=== PATIENT | female | born 1975 | race Caucasian/White ===

== ENCOUNTER 2017-08-11 22:01 | Emergency (ER) | payer MEDICAID ==
--- NOTE | 2017-08-11 22:17 | ER Document Report ---
ED Medical Screen (RME) - General Chief Complaint: Suicidal Ideation Stated Complaint: SUICIDIAL IDEATION Time Seen by Provider: 08/11/17 22:14 Mode of Arrival: Wheelchair Information source: Patient Notes: Having suicidal thoughts. States she plans to take more pills if she gets sent home. States she is addicted to alcohol and crack. She states in the past she is taking opiates crack and heroin. States her last time taken crackles Friday. States she has taken 30 Prozac multiple amlodipine and hydrochlorothiazide over the last 3 days but she does not know how many. She states she just took what was left in the bottle and then felt a new bottle. She is here with her sister. Sister has her bag of pills and patient is very tearful. I have greeted and performed a rapid initial assessment of this patient. A comprehensive ED assessment and evaluation of the patient, analysis of test results and completion of medical decision making process will be conducted by an additional ED providers. TRAVEL OUTSIDE OF THE [place] IN LAST 30 DAYS: No Physical Exam - Vital signs Vitals: Temp Pulse Resp BP Pulse Ox 98.3 F 138 H 22 H 133/87 H 98 08/11/17 22:05 08/11/17 22:05 08/11/17 22:05 08/11/17 22:05 08/11/17 22:05 Course - Vital Signs Vital signs: Temp Pulse Resp BP Pulse Ox 98.3 F 138 H 22 H 133/87 H 98 08/11/17 22:05 08/11/17 22:05 08/11/17 22:05 08/11/17 22:05 08/11/17 22:05
[2017-08-11 23:05] LABS: ABSOLUTE EOSINOPHILS # (AUTO) 0.1 10^3/uL (0.0-0.6); ABSOLUTE LYMPHOCYTES (AUTO) 3.4 10^3/uL (0.5-4.7); ABSOLUTE MONOCYTES (AUTO) 0.7 10^3/uL (0.1-1.4); ABSOLUTE NEUT (AUTO) 3.4 10^3/uL (1.7-8.2); BASOPHILS % (AUTO) 0.6 % (0-2); EOSINOPHILS % (AUTO) 1.3 % (0-6); HEMATOCRIT 39.1 % (36.0-47.0); HEMOGLOBIN 13.9 g/dL (12.0-15.5); LYMPHOCYTES % (AUTO) 44.8 % (13-45); MEAN CORPUSCULAR HEMOGLOBIN 33.2 pg (27.0-33.4); MEAN CORPUSCULAR HGB CONC 35.4 g/dL (32.0-36.0); MEAN CORPUSCULAR VOLUME 94 fl (80-97); MONOCYTES % (AUTO) 8.8 % (3-13); PLATELET COUNT 377 10^3/uL (150-450); RED BLOOD COUNT 4.18 10^6/uL (3.72-5.28); RED CELL DISTRIBUTION WIDTH 12.9 % (11.5-14.0); SEGMENTED NEUTROPHILS % (AUTO) 44.5 % (42-78); TOTAL CELLS COUNTED % (AUTO) 100 %; WHITE BLOOD COUNT 7.7 10^3/uL (4.0-10.5)
[2017-08-11 23:17] LABS: ACETAMINOPHEN < 10 ug/mL (10-30); ALANINE AMINOTRANSFERASE 36 U/L (9-52); ALBUMIN 4.5 g/dL (3.5-5.0); ALCOHOL 177 mg/dL (NONE DETECTED); ALKALINE PHOSPHATASE 73 U/L (38-126); ANION GAP 14 (5-19); ASPARTATE AMINO TRANSFERASE 31 U/L (14-36); BILIRUBIN,DIRECT 0.1 mg/dL (0.0-0.4); BILIRUBIN,TOTAL 0.2 mg/dL (0.2-1.3); BLOOD UREA NITROGEN 6 mg/dL (7-20); CALCIUM 9.4 mg/dL (8.4-10.2); CARBON DIOXIDE 29 mmol/L (22-30); CHLORIDE 97 mmol/L (98-107); GLUCOSE 101 mg/dL (75-110); SALICYLATE < 1.0 mg/dL (2.0-20.0); SODIUM 139.8 mmol/L (137-145); TOTAL PROTEIN 6.7 g/dL (6.3-8.2)
[2017-08-11 23:19] LABS: POTASSIUM 2.6 mmol/L (3.6-5.0)
[2017-08-12] MEDS ORDERED: MAGNESIUM OXIDE 400 MG TABLET PO ONE (00:23)
[2017-08-12] MEDS ORDERED: POTASSIUM CHLORIDE 10 MEQ TABLET.SA PO ONE ×3 (00:23→12:17)
[2017-08-12 02:56] LABS: APPEARANCE,URINE SLIGHTLY-CLOUDY; BILIRUBIN,URINE NEGATIVE (NEGATIVE); COLOR,URINE YELLOW; GLUCOSE, URINE NEGATIVE (NEGATIVE); KETONES,URINE NEGATIVE (NEGATIVE); LEUKOCYTE ESTERASE,URINE TRACE (NEGATIVE); NITRITE,URINE NEGATIVE (NEGATIVE); PROTEIN,URINE NEGATIVE (NEGATIVE); URINE SPECIFIC GRAVITY 1.004; UROBILINOGEN,URINE NEGATIVE mg/dL (<2.0)
[2017-08-12 03:10] LABS: URINE AMPHETAMINES SCREEN NEGATIVE; URINE BARBITURATES SCREEN NEGATIVE; URINE BENZODIAZEPINES SCREEN NEGATIVE; URINE COCAINE SCREEN NEGATIVE; URINE MARIJUANA (THC) SCREEN NEGATIVE; URINE METHADONE SCREEN NEGATIVE; URINE PHENCYCLIDINE SCREEN NEGATIVE
--- NOTE | 2017-08-12 03:43 | ER Document Report ---
ED General - General Chief Complaint: Suicidal Ideation Stated Complaint: SUICIDIAL IDEATION Time Seen by Provider: 08/11/17 22:14 Mode of Arrival: Wheelchair Cannot obtain history due to: Intoxicated, Altered mental status Notes: Patient is a 41-year-old female presents with her sister with suicidal ideation and polysubstance abuse. History is limited to me as the patient is intoxicated , difficult to awake. Review of the triage assessment does report that the patient has been using multiple drugs and is stating that if she is discharged home she will kill herself. Patient wakes up to talk to me she is obviously intoxicated, unable to provide any additional meaningful history. Family is no longer at the bedside at the time of my assessment. TRAVEL OUTSIDE OF THE [place] IN LAST 30 DAYS: No Past Medical History - General Information source: Patient - Social History Smoking Status: Current Every Day Smoker Frequency of alcohol use: Heavy Drug Abuse: Cocaine, Methamphetamine Lives with: Family Family History: Reviewed & Not Pertinent Patient has suicidal ideation: Yes Patient has homicidal ideation: No Renal/ Medical History: Denies: Hx Peritoneal Dialysis Psychiatric Medical History: Reports: Hx Depression Review of Systems - Review of Systems -: Yes ROS unobtainable due to patient's medical condition Physical Exam - Vital signs Vitals: Temp Pulse Resp BP Pulse Ox 98.3 F 138 H 22 H 133/87 H 98 08/11/17 22:05 08/11/17 22:05 08/11/17 22:05 08/11/17 22:05 08/11/17 22:05 Interpretation: Tachycardic Notes: PHYSICAL EXAMINATION: GENERAL: Sleeping soundly, in no distress. HEAD: Atraumatic, normocephalic. EYES: Pupils equal round and reactive to light, sclera anicteric, conjunctiva are normal. ENT: nares patent, oropharynx clear without exudates. Moderately dry mucous membranes. NECK: Normal range of motion, supple without lymphadenopathy LUNGS: Breath sounds clear to auscultation bilaterally and equal. No wheezes rales or rhonchi. HEART: Regular rate and rhythm without murmurs ABDOMEN: Soft, nontender, normoactive bowel sounds. No guarding, no rebound. No masses appreciated. EXTREMITIES: no pitting or edema. No cyanosis. NEUROLOGICAL: No focal neurological deficits. Moves all extremities spontaneously. PSYCH: Intoxicated, somnolent SKIN: Warm, Dry, normal turgor, no rashes or lesions noted. Course - Re-evaluation Re-evalutation: 08/12/17 03:41 Patient presents apparently with suicidal ideation although was very calm, difficult to wake up when I was speaking to her. She did wake up was able to move all extremities, was slurring her words, clinically consistent with acute intoxication. Review of the provider's note from triage states that at that time the patient was quite agitated, threatening suicide, and admitting to extensive drug use. Patient's medical screening laboratories and exam are all are unremarkable with exception of moderate hypokalemia 2.6. Potassium magnesium repletion have been provided. Patient is medically cleared for evaluation and disposition by psychiatry in the morning - Vital Signs Vital signs: Temp Pulse Resp BP Pulse Ox 98.3 F 138 H 22 H 133/87 H 98 08/11/17 22:05 08/11/17 22:05 08/11/17 22:05 08/11/17 22:05 08/11/17 22:05 - Laboratory Result Diagrams: 08/11/17 22:45 08/11/17 22:45 Laboratory results interpreted by me: 08/11/17 08/12/17 22:45 02:30 Potassium 2.6 L* Chloride 97 L BUN 6 L Urine Blood LARGE H Ur Leukocyte Esterase TRACE H Salicylates < 1.0 L Acetaminophen < 10 L Discharge - Discharge Clinical Impression: Polysubstance abuse, Suicidal ideation Condition: Fair
--- NOTE | 2017-08-12 10:18 | PSYCHOLOGICAL NOTE ---
Psych Note - Psych Note Psych Note: Reason for consult: Suicidal ideation Eval : 0830 Final Dispo: 0930 Contact Permissions Kristin Velasco [phone] Patient is a 41-year-old female. Patient reports that she came to the emergency room because her friend Kristin was talking on the phone with her and made an agreement to come pick her up and taken to the emergency room because she was not feeling well. Patient reports that she has been drinking alcohol excessively daily, stating 12 pack or more per day. Patient reports that she told her friend/sister that she wanted to get detox. Patient reports that she was in detox 3 or 4 years ago in [place] for a heroin addiction. Patient reports prior to discharging from the rehab facility she was addicted to heroin , opioids, and crack. Patient reports that after rehab she received therapy in [place] and was receiving Suboxone which has been helpful. Patient reports that it has been a year since she is actively used heroin. Patient reports that she uses opioids socially. Patient reports that last week she used crack. Patient stated "I am an addict". Patient reports that in the past month she has taken every pill that she had. Patient reports that she "feels like she is killing herself slowly by all the things she is putting in her body". Patient reports that her sister/friend Kristin is her main support. Patient reports that she is willing to go to treatment and just needs the resources and help to get their. Patient reports that she has a prior diagnosis of bipolar disorder. Patient reports that she feels no one has gotten a proper diagnosis to her and wants to know what medication she supposed to take. Patient reports she wants a longer assessment so she can "figure out what is wrong with her". Patient reports she wants new medications to replace the cravings of substances. Patient reports she knows hospitals can provide medications that "take the alcohol cravings away". Patient reports she doesn't want to self-medicate with alcohol, she would rather get the feeling from a prescribed medication. Clinician provided psychoeducation on substance use and correlation with mental health symptoms. Clinician provided psychoeducation on substance use treatment and provided resources to patient. Medication recommendations made by [facility] contracted psychiatric provider Dr. Stef MD. includes: NONE Diagnosis: Per Hx 296.80 ( F31.9) unspecified bipolar disorder 303.90 ( F10.20) Alcohol use disorder severe Impression/Plan: Patient is psychiatrically cleared for discharge. Recommendation for patient to follow up with [facility] for linkage to detox facility. Clinician provided psycho-education to patient regarding substance use and treatment options. Clinician observed through patient report, patient's primary complaint is substance use, and wanting to initiate change. Patient denied SI/HI. Patient states, she felt drinking 12 beers per day, and utilizing "crack" occasionally was "slowly killing herself"; patient is not actively suicidal. Behavioral health team notified [facility] patient will be seeking services and we will be providing their information to patient for continuity of care. Behavioral health logistics intern coordinated with patient's sister Kristin whom agreed to assist patient in transporting to [facility]. Patient also received additional resources to give patient more choices to choose from. Consulted with Dr. Boyd regarding the management and care of patient.
[2017-08-12 15:55] VITALS: BP 125/66
== END 2017-08-12 15:55 | disposition home or self-care (01) ==
LOC: ER 22:01
DX: F19.10 Other psychoactive substance abuse, uncomplicated (principal); F10.229 Alcohol dependence with intoxication, unspecified; E87.6 Hypokalemia; F17.200 Nicotine dependence, unspecified, uncomplicated
CPT/HCPCS: 99285; 36415; 80307 ×4; 84132; 84703; 85025; 80053; 81001; J3490